=== PATIENT | male | born 1940 | race Caucasian/White ===

== ENCOUNTER 2018-03-07 13:23 | Outpatient (CLI) | payer MEDICARE, OTHER | END 2018-03-07 13:24 | disposition home or self-care (01) | LOC: BICMRI 13:23 | PROVIDERS: ATTEND Anesthesiology Pain Medicine | DX: M51.16 Intervertebral disc disorders with radiculopathy, lumbar region (principal); M48.061 Spinal stenosis, lumbar region without neurogenic claudication; M99.83 Other biomechanical lesions of lumbar region; M43.16 Spondylolisthesis, lumbar region | CPT/HCPCS: 72148 ==

== ENCOUNTER 2018-12-22 13:52 | Outpatient (CLI) | payer MEDICARE, OTHER ==
--- NOTE | 2018-12-22 15:10 | MRI ---
MRI lumbar spine. HISTORY: Lumbar radiculopathy. Multiplanar multisequence noncontrast enhanced MRI images lumbar spine obtained. Radiographic findings: T12-L1: Unremarkable. L1-2: There is some disc desiccation seen. There is a mild broad-based disc bulge. Minimal facet hype rtrophy seen. No significant degree of central or neural foraminal narrowing seen. L2-3: Disc desiccation seen. There is edema inferior endplate of L2 and superior endplate of L3. Ther e is a broad-based disc bulge with bilateral facet hypertrophy. This results in a moderate degree of central and lateral recess stenosis. Modic type II changes seen in the inferior endplate of L2 and type I changes seen in the superior endplate of L3. There is a broad-based disc bulge resulting in a moderate degree of central and lateral recess stenosis. Mild to moderate bilateral neural foraminal narrowing seen. L3-4: There is desiccation of disc at this level with broad-based disc bulge and bilateral facet and ligamentum flavum hypertrophy. This results in severe central and lateral recess stenosis. There is moderate to severe bilateral neural foraminal narrowing. L4-5: Disc desiccation seen. There is a mild broad-based disc bulge and bilateral facet and ligamentu m flavum hypertrophy resulting in mild central and lateral recess stenosis. The neural foramen are patent. L5-S1: Disc desiccation seen. There is a broad-based disc bulge. This results in mild central stenosi s. There is moderate bilateral neural foraminal narrowing due to the disc desiccation and broad-based disc bulge at this level. There is also minimal anterolisthesis of L5 on S1 measuring eric roximately 3.3 mm. Small posterior left L5-S1 facet joint synovial cyst is present. Impression 1. L2-3 marked disc degeneration and endplate changes. 2: L3-4 central disc bulge and stenosis. 3. L5-S1 disc degenerative change. Transcribed Date/Time: 12/22/2018 3:55 PM
== END 2018-12-22 13:53 | disposition home or self-care (01) ==
LOC: BICMRI 13:52
PROVIDERS: ATTEND Surgery
DX: M51.16 Intervertebral disc disorders with radiculopathy, lumbar region (principal); M48.062 Spinal stenosis, lumbar region with neurogenic claudication; M47.27 Other spondylosis with radiculopathy, lumbosacral region
CPT/HCPCS: 72148

== ENCOUNTER 2019-02-13 09:37 | Outpatient (CLI) | payer MEDICARE, OTHER ==
[2019-02-13 12:16] LABS: #Basophils 0.1 thou/uL (0.0-0.2); #Eosinphils 0.1 thou/uL (0.0-0.7); #Monocytes 1.2 thou/uL (0.11-0.59); #Neutrophils 5.1 thou/uL (1.40-6.50); %Basophils 0.8 % (0.0-1.0); %Eosinophils 0.9 % (0.0-10.0); %Lymphocytes 23.6 % (21.0-51.0); %Monocytes 13.9 % (0.0-10.0); %Neutrophils 60.8 % (42.0-75.0); Hemoglobin 14.5 g/dL (14.0-18.0); Mean Corpuscular HGB CONC 33.7 g/dL (32.0-36.0); Mean Corpuscular Hemoglobin 31.8 pg (27.0-31.0); Mean Corpuscular Volume 94.2 fL (78.0-98.0); Mean Platelet Volume 7.6 fL (7.4-10.4); Platelet Count 189 thou/uL (130-400); RBC Distribution Width 12.4 % (11.5-14.5); Red Blood Cell (RBC) Count 4.56 mill/uL (4.70-6.10); White Blood Cell (WBC) Count 8.3 thou/uL (4.8-10.8)
[2019-02-13 12:23] LABS: INR-International Normal Ratio 1.1; PTT 31.8 SEC (22.9-36.1)
[2019-02-13 12:44] LABS: Anion Gap 12 mmol/L (10-20); BUN (Urea Nitrogen) 17 mg/dL (8.4-25.7); Calc. Creatinine Clearance 0 mL/min (70-130); Calcium 10.1 mg/dL (7.8-10.44); Carbon Dioxide 24 mmol/L (23-31); Chloride 105 mmol/L (98-107); Estimated GFR-MDRD 86; Glucose 104 mg/dL (83-110); Potassium 4.3 mmol/L (3.5-5.1); Sodium 137 mmol/L (136-145)
--- NOTE | 2019-02-13 15:48 | EKG ---
Test Reason : Blood Pressure : / mmHG Vent. Rate : 054 BPM Atrial Rate : 054 BPM P-R Int : 226 ms QRS Dur : 098 ms QT Int : 448 ms P-R-T Axes : 048 011 069 degrees QTc Int : 424 ms Sinus bradycardia with 1st degree A-V block Inferior infarct , age undetermined Abnormal ECG When compared with ECG of 09-MAR-2017 09:13, Significant changes have occurred Confirmed by SYDNIE ALARCON, SKip ([id number]) on 02/13/2019 3:47:47 PM Referred By: TIERRA Confirmed By:DR. Elaine OTOOLE MD
== END 2019-02-13 09:38 | disposition home or self-care (01) ==
LOC: LABBT 09:37
PROVIDERS: ATTEND Surgery
DX: Z01.818 Encounter for other preprocedural examination (principal); M48.061 Spinal stenosis, lumbar region without neurogenic claudication; M54.16 Radiculopathy, lumbar region
CPT/HCPCS: 80048; 85025; 85610; 85730; 93005; 93010

== ENCOUNTER 2019-02-14 09:25 | Day surgery (SDC) | payer MEDICARE, OTHER ==
[2019-02-13 11:16] VITALS: BMI 22.6
[2019-02-14] MEDS ORDERED: ceFAZolin Sodium (SDC) 2 GM/100 ML BAG ONE (10:34)
[2019-02-14] MEDS ORDERED: Sodium Chloride 0.9% 10 ML ONE (13:03)
[2019-02-14] MEDS ORDERED: Bacitracin Zinc Ointment 30 gm TUBE ONE (13:03)
[2019-02-14] MEDS ORDERED: Fentanyl 100 MCG/2 ML VIAL ONE ×3 (13:23→15:26)
[2019-02-14] MEDS ORDERED: Ondansetron HCl/PF 4 MG/2 ML Vial IVP PRN (15:27)
[2019-02-14] MEDS ORDERED: PACU-Morphine 4MG/ML VIAL SLOW IVP PRN (15:27)
[2019-02-14] MEDS ORDERED: Promethazine HCl 25 MG/ML VIAL IM PRN ×2 (15:27→22:57)
[2019-02-14] MEDS ORDERED: Promethazine HCl 25 MG/ML VIAL SLOW IVP PRN (15:27)
[2019-02-14] MEDS ORDERED: Morphine 4 MG/ML VIAL ONE (15:27)
[2019-02-14] MEDS ORDERED: HYDROmorphone 2 MG/ML VIAL ONE (15:27)
[2019-02-14] MEDS ORDERED: HYDROmorphone 2 MG/ML VIAL SLOW IVP PRN (15:27)
[2019-02-14] MEDS ORDERED: Milk Of Magnesia 30 ML UDCUP PO PRN (15:35)
[2019-02-14] MEDS ORDERED: Acetaminophen 325 MG TAB PO PRN (15:35)
[2019-02-14] MEDS ORDERED: Fleet Enema 133 ML BOT PR PRN (15:35)
[2019-02-14] MEDS ORDERED: tiZANidine HCl 4 MG TAB PO PRN (15:35)
[2019-02-14] MEDS ORDERED: Ondansetron PF 4 MG/2 ML Vial IVP PRN (15:35)
[2019-02-14] MEDS ORDERED: Acetaminophen/Codeine 30-300mg Tablet PO PRN (15:35)
[2019-02-14] MEDS ORDERED: Mag-Al 1200 mg/1200 mg/30 ML UDCUP PO PRN (15:35)
[2019-02-14] MEDS ORDERED: Bisacodyl 10 MG SUPP PR PRN (15:35)
[2019-02-14] MEDS ORDERED: traMADol HCl 50 MG TAB PO PRN (15:35)
[2019-02-14] MEDS ORDERED: Morphine 2 MG/ML SYRINGE SLOW IVP PRN (15:35)
[2019-02-14] MEDS: CEFAZOLIN 2 GM, Admixture Fee 1 EACH in Sodium Chloride 0.9% 100 ML IVPB SCH ×2 (19:30→21:16)
[2019-02-14] MEDS ORDERED: Atorvastatin Calcium 20 MG TAB PO SCH (21:00)
[2019-02-14] MEDS: Sodium Chloride 0.9% 1,000 ML IV SCH (21:31)
[2019-02-14] MEDS: Famotidine 20 MG TAB PO SCH (21:42)
[2019-02-14] MEDS: Temazepam 15 MG CAP PO SCH ×3 (21:42→23:34)
[2019-02-14] MEDS ORDERED: Tamsulosin HCl 0.4 MG CAP PO SCH (23:00)
[2019-02-15] MEDS ORDERED: CEFAZOLIN 2 GM, Admixture Fee 1 EACH in Sodium Chloride 0.9% 100 ML IVPB SCH (05:00)
[2019-02-15] MEDS: Sodium Chloride 0.9% 1,000 ML IV SCH (06:04)
[2019-02-15] MEDS: HYDROcodone/Acetaminophen 7.5/325 mg Tablet PO PRN ×2 (06:09→11:22)
[2019-02-15] MEDS: Famotidine 20 MG TAB PO SCH (08:46)
[2019-02-15] MEDS ORDERED: Cyanocobalamin (Vitamin B-12) 1,000 MCG TAB PO SCH (09:00)
[2019-02-15] MEDS ORDERED: Ascorbic Acid 500 mg Chewable Tablet PO SCH (09:00)
[2019-02-15] MEDS ORDERED: Gabapentin 100 MG CAP PO SCH (09:00)
[2019-02-15] MEDS ORDERED: Tamsulosin HCl 0.4 MG CAP PO SCH (09:00)
[2019-02-15 11:46] VITALS: BP 144/69; TEMP 97.7
--- NOTE | 2019-02-15 12:06 | PRG ---
DATE OF SERVICE: 02/15/2019 SUBJECTIVE: Mr. Hernandez is postoperative day #1, his lumbar stenosis. Symptoms are improved. He does have a urinary retention. We will work through this and try and arrange for dismissal later today. Job ID: [id number]
--- NOTE | 2019-02-15 12:18 | OP ---
DATE OF PROCEDURE: 02/14/2019 DIAGNOSIS: Lumbar stenosis. PROCEDURE PERFORMED: Lumbar laminectomy (L2-L3, L3-L4, L4-L5 laminectomies), partial facetectomies, foraminotomies. DESCRIPTION OF PROCEDURE: After informed consent was obtained from the patient, the patient was placed under general endotracheal anesthesia and positioned prone on the OR table. All appropriate points were padded. We identified the L2 to L5 dorsal spines and lamina. A linear howie was made. This region was sterilely cleansed, prepared, and draped. Proper patient, pause, and identification were carried out. The wound was then opened with a combination of sharp, monopolar, and blunt dissection. The L2, L3, L4, and L5 spinous processes and lamina were exposed. Localization film then confirmed area of interest and performed an L2 to L5 laminectomy, partial facetectomy, and foraminotomies. Copious irrigation occurred throughout as did maximizing the hemostasis. The wound was then closed in anatomic layers following sprinkling of vancomycin powder. The patient was then emerged from anesthesia. Job ID: [id number]
== END 2019-02-15 12:33 | disposition home or self-care (01) ==
LOC: SDC 09:25 → SURG A 15:35 → SDC 02-15 12:33
PROVIDERS: ATTEND Surgery
PROC: 01NB0ZZ Release Lumbar Nerve, Open Approach (ICD-10-PCS; principal; 2019-02-14)
DX: M48.061 Spinal stenosis, lumbar region without neurogenic claudication (principal); M54.16 Radiculopathy, lumbar region; Z79.82 Long term (current) use of aspirin; Z79.899 Other long term (current) drug therapy
CPT/HCPCS: 76000; 80048; 85025; 85610; 85730; 93005; 93010; J0690; J1170; J2270; J2405; J2550; J3010; J3370; J3490

== ENCOUNTER 2020-01-31 15:20 | Outpatient (CLI) | payer MEDICARE, OTHER ==
--- NOTE | 2020-01-31 16:15 | MRI ---
MRI BRAIN WITHOUT CONTRAST: HISTORY: Short-term memory loss FINDINGS: No restricted diffusion is seen. There are multiple foci of T2 prolongation in the periventricular wh ite matter, consistent with chronic small vessel ischemic disease. The ventricular size is appropriate and the basilar cisterns are patent. No evidence of acute infarct, hemorrhage, midline shift or abnormal extra-axial fluid collections is seen. The visualized paranasal sinuses and mastoid air cells are well-aerated. IMPRESSION: No evidence of acute intracranial process.
== END 2020-01-31 15:21 | disposition home or self-care (01) ==
LOC: BICMRI 15:20
PROVIDERS: ATTEND Family Medicine
DX: R41.3 Other amnesia (principal)
CPT/HCPCS: 70551

== ENCOUNTER 2020-09-19 15:23 | Outpatient (CLI) | payer MEDICARE, OTHER | END 2020-09-19 15:24 | disposition home or self-care (01) | LOC: BICRAD 15:23 | PROVIDERS: ATTEND Family Medicine | DX: R25.2 Cramp and spasm (principal); M47.816 Spondylosis without myelopathy or radiculopathy, lumbar region | CPT/HCPCS: 72100 ==

== ENCOUNTER 2020-11-27 13:50 | Outpatient (CLI) | payer MEDICARE, OTHER | END 2020-11-27 13:51 | disposition home or self-care (01) | LOC: BICRAD 13:50 | PROVIDERS: ATTEND Internal Medicine Rheumatology | DX: M25.561 Pain in right knee (principal) ==

== ENCOUNTER 2021-01-06 13:13 | Outpatient (CLI) | payer MEDICARE, OTHER | END 2021-01-06 13:14 | disposition home or self-care (01) | LOC: BICMRI 13:13 | PROVIDERS: ATTEND Internal Medicine Rheumatology | DX: M25.551 Pain in right hip (principal); M25.561 Pain in right knee; M16.11 Unilateral primary osteoarthritis, right hip; Z98.890 Other specified postprocedural states ==

== ENCOUNTER 2022-02-06 14:47 | Outpatient (CLI) | payer MEDICARE, OTHER ==
[2022-02-06 16:29] LABS: #Eosinphils 0.1 10x3/uL (0.0-0.5); #Monocytes 1.2 10x3/uL (0.0-1.1); #Neutrophils 6.4 10x3/uL (1.5-8.4); %Basophils 0.4 % (0.0-2.0); %Eosinophils 0.5 % (0.0-6.0); %Lymphocytes 19.3 % (18.0-47.0); %Monocytes 12.3 % (0.0-10.0); %Neutrophils 67.2 % (40.0-75.0); Mean Corpuscular HGB CONC 34.2 g/dL (32.0-36.0); Mean Corpuscular Hemoglobin 32.5 pg (27.0-33.0); Mean Corpuscular Volume 94.9 fl (81.2-95.1); Mean Platelet Volume 9.6 fl (7.4-10.4); Platelet Count 221 10x3/uL (150-450); RBC Distribution Width 13.9 % (11.5-14.5); Red Blood Cell (RBC) Count 4.31 10x6/uL (4.32-5.72); White Blood Cell (WBC) Count 9.6 10x3/uL (3.5-10.5)
[2022-02-06 16:53] LABS: Anion Gap 14 mmol/L (10-20); BUN (Urea Nitrogen) 24 mg/dL (8.4-25.7); Calc. Creatinine Clearance 0 mL/min (70-130); Calcium 9.7 mg/dL (7.8-10.44); Carbon Dioxide 25 mmol/L (23-31); Chloride 104 mmol/L (98-107); Estimated GFR 88; Glucose 96 mg/dL (83-110); Potassium 4.2 mmol/L (3.5-5.1); Sodium 139 mmol/L (136-145)
== END 2022-02-06 14:48 | disposition home or self-care (01) ==
LOC: LABBT 14:47
PROVIDERS: ATTEND Surgery
DX: Z01.818 Encounter for other preprocedural examination (principal); K40.20 Bilateral inguinal hernia, without obstruction or gangrene, not specified as recurrent; Z20.822 Contact with and (suspected) exposure to COVID-19
CPT/HCPCS: 80048; 85025; 87811; 93005; 93010

== ENCOUNTER 2022-02-10 05:59 | Day surgery (SDC) | payer MEDICARE, OTHER ==
[2022-02-09 09:19] VITALS: BMI 21.9
[2022-02-10] MEDS ORDERED: fentaNYL Citrate/PF 100 MCG/2 ML SYRINGE ONE (06:44)
[2022-02-10] MEDS ORDERED: Lidocaine 1% w/Epinephrine 1:200K 30 ML VIAL ONE (07:22)
[2022-02-10] MEDS ORDERED: Bupivacaine 0.25% 10 ML VIAL ONE (07:22)
[2022-02-10] MEDS ORDERED: Bupivacaine/Epinephrine 0.25% 30 ML VIAL ONE (07:23)
[2022-02-10] MEDS ORDERED: CEFAZOLIN 2 GM VIAL ONE (07:29)
[2022-02-10] MEDS ORDERED: Sodium Chloride 0.9% 100 ML ONE (07:29)
[2022-02-10] MEDS ORDERED: Rocuronium Bromide 10 MG/ML (10ML VIAL) ONE (07:35)
[2022-02-10] MEDS ORDERED: Glycopyrrolate 0.2 MG/ML 5 ML SYRINGE ONE (07:35)
[2022-02-10] MEDS ORDERED: Ketorolac Tromethamine 30 MG/ML VIAL ONE (07:35)
[2022-02-10] MEDS ORDERED: Lidocaine 1% PF 5 ML VIAL ONE (07:35)
[2022-02-10] MEDS ORDERED: PROPOFOL 200 MG/20 ML VIAL ONE (07:35)
[2022-02-10] MEDS ORDERED: Dexamethasone 20 MG/5 ML VIAL ONE (07:35)
[2022-02-10] MEDS ORDERED: ePHEDrine 50 MG/ML VIAL ONE (07:35)
[2022-02-10] MEDS ORDERED: Ondansetron PF 4 MG/2 ML Vial ONE (07:35)
[2022-02-10] MEDS ORDERED: Fentanyl 100 MCG/2 ML VIAL ONE (09:42)
[2022-02-10] MEDS ORDERED: HYDROcodone/Acetaminophen 5/325 mg Tablet ONE ×2 (11:07→12:09)
== END 2022-02-10 14:50 | disposition home or self-care (01) ==
LOC: SDC 05:59
PROVIDERS: ATTEND Surgery
PROC: 0YUA4JZ Supplement Bilateral Inguinal Region with Synthetic Substitute, Percutaneous Endoscopic Approach (ICD-10-PCS; principal; 2022-02-10)
PROC: 8E0W4CZ Robotic Assisted Procedure of Trunk Region, Percutaneous Endoscopic Approach (ICD-10-PCS; 2022-02-10)
DX: K40.21 Bilateral inguinal hernia, without obstruction or gangrene, recurrent (principal); J45.909 Unspecified asthma, uncomplicated; Z87.891 Personal history of nicotine dependence; Z79.82 Long term (current) use of aspirin; Z79.899 Other long term (current) drug therapy; Z95.1 Presence of aortocoronary bypass graft
CPT/HCPCS: 49651; C1781 ×2; J0690; J1100; J1885; J2405; J2704; J2710; J3010; J3490; S0020

== ENCOUNTER 2022-07-21 14:58 | Outpatient (CLI) | payer MEDICARE, OTHER | END 2022-07-21 14:59 | disposition home or self-care (01) | LOC: BICRAD 14:58 | PROVIDERS: ATTEND Family Medicine | DX: M54.42 Lumbago with sciatica, left side (principal); M47.816 Spondylosis without myelopathy or radiculopathy, lumbar region; Z98.890 Other specified postprocedural states | CPT/HCPCS: 72100 ==

== ENCOUNTER 2024-06-05 13:46 | Outpatient (CLI) | payer MEDICARE, OTHER | END 2024-06-05 13:47 | disposition home or self-care (01) | LOC: BICRAD 13:46 | PROVIDERS: ATTEND Internal Medicine Rheumatology | DX: M16.11 Unilateral primary osteoarthritis, right hip (principal) ==